=== PATIENT | male | born 1935 | race Caucasian/White ===

== ENCOUNTER 2024-03-02 11:05 | Emergency (ER) | payer MEDICARE, BC ==
[~2024-03-02] VITALS: Ht 180.3 cm; Wt 113.6 kg
[~2024-03-02 11:05] MED LIST: ALLO300T8 PO; ASPI-280 PO; ATOR40TA72 PO; DONE10TA44 PO; FOLI1TAB27 PO; METO-384 PO; RIVA20TA PO
[2024-03-02 11:09] VITALS: TEMP 97.8
[2024-03-02 11:30] LABS: BASOPHILS # (AUTO) 0.1 X10'3 (0-0.2); BASOPHILS % (AUTO) 0.5 % (0-1); EOSINOPHILS # (AUTO) 0.4 X10'3 (0-0.9); HEMATOCRIT 33.9 % (42.0-52.0); HEMOGLOBIN 11.2 g/dl (14.0-17.9); LYMPHOCYTES # (AUTO) 2.5 X10'3 (1.1-4.8); LYMPHOCYTES % (AUTO) 23.1 % (21-51); MEAN CORPUSCULAR HEMOGLOBIN 30.8 PG (27.0-31.0); MEAN CORPUSCULAR HGB CONC 32.9 g/dL (33.0-36.5); MEAN CORPUSCULAR VOLUME 93.6 FL (78-98); MEAN PLATELET VOLUME 6.8 FL (7.4-10.4); NEUTROPHILS # (AUTO) 6.8 X10'3 (1.8-7.7); NEUTROPHILS % (AUTO) 63.4 % (42-75); PLATELET COUNT 156 X10'3 (140-440); RED BLOOD COUNT 3.63 X10'6 (4.70-6.10); WHITE BLOOD COUNT 10.7 X10'3 (4.5-11.0)
[2024-03-02 11:51] LABS: ALBUMIN 3.4 G/DL (3.4-5.0); ANION GAP 10 (8-16); BLOOD UREA NITROGEN 16 MG/DL (7-18); BUN/CREATININE RATIO 13.2 (10.0-20.0); CALCIUM 9.1 MG/DL (8.5-10.1); CHLORIDE 100 MMOL/L (99-107); CREATININE 1.21 MG/DL (0.60-1.10); GLUCOSE 140 MG/DL (70-104); POTASSIUM 5.1 MMOL/L (3.5-5.1); PRO BRAIN NATRIURETIC PEPTIDE 864 PG/ML (0-450); SODIUM 138 MMOL/L (135-145); TOTAL CARBON DIOXIDE 27.7 MMOL/L (24-32); eCRCL 44 ML/MIN; eGFR 56 ML/MIN
[2024-03-02] MEDS: cyclobenzaprine 10mg tablet PO ONE (15:07)
[2024-03-02 17:13] VITALS: BP 142/74; PULSE 62; RESP 15; O2SAT 96
== END 2024-03-02 17:19 | disposition home or self-care (01) ==
LOC: ER 11:05
DX: T82.118A Breakdown (mechanical) of other cardiac electronic device, initial encounter (principal); I25.10 Atherosclerotic heart disease of native coronary artery without angina pectoris; E78.00 Pure hypercholesterolemia, unspecified; I10 Essential (primary) hypertension; Z95.0 Presence of cardiac pacemaker; Z72.89 Other problems related to lifestyle; Z79.82 Long term (current) use of aspirin; Z79.899 Other long term (current) drug therapy
CPT/HCPCS: 36415; 71045; 80048; 83880; 84484; 85025; 93005; 99285; A4615